=== PATIENT | female | born 1955 | race Caucasian/White ===

== ENCOUNTER 2018-08-19 00:58 | Emergency (ER) | payer BC ==
[2018-08-19 01:21] LABS: #Basophils 0.1 thou/uL (0.0-0.2); #Eosinphils 0.1 thou/uL (0.0-0.7); #Lymphocytes 2.3 thou/uL (1.20-3.40); #Monocytes 0.4 thou/uL (0.11-0.59); #Neutrophils 4.6 thou/uL (1.40-6.50); %Basophils 1.5 % (0.0-1.0); %Eosinophils 1.1 % (0.0-10.0); %Lymphocytes 30.2 % (21.0-51.0); %Monocytes 5.7 % (0.0-10.0); %Neutrophils 61.5 % (42.0-75.0); Hemoglobin 15.3 g/dL (12.0-16.0); Mean Corpuscular HGB CONC 34.9 g/dL (32.0-36.0); Mean Corpuscular Hemoglobin 31.2 pg (27.0-31.0); Mean Corpuscular Volume 89.5 fL (78.0-98.0); Mean Platelet Volume 8.2 fL (7.4-10.4); Platelet Count 256 thou/uL (130-400); RBC Distribution Width 11.5 % (11.5-14.5); Red Blood Cell (RBC) Count 4.91 mill/uL (4.20-5.40); White Blood Cell (WBC) Count 7.5 thou/uL (4.8-10.8)
[2018-08-19 01:34] LABS: ALT (SGPT) 23 U/L (8-55); AST (SGOT) 18 U/L (5-34); Albumin 4.2 g/dL (3.5-5.0); Alkaline Phosphatase 48 U/L (40-150); Anion Gap 12 mmol/L (10-20); BUN (Urea Nitrogen) 18 mg/dL (9.8-20.1); Bilirubin, Total 0.3 mg/dL (0.2-1.2); CK (CPK) 141 U/L (29-168); Calc. Creatinine Clearance 0 mL/min (70-130); Calcium 9.3 mg/dL (7.8-10.44); Carbon Dioxide 23 mmol/L (22-29); Chloride 101 mmol/L (98-107); Estimated GFR-MDRD 84; Globulin 2.5 g/dL (2.4-3.5); Glucose 129 mg/dL (70-105); Potassium 3.8 mmol/L (3.5-5.1); Protein, Total 6.7 g/dL (6.0-8.3); Sodium 132 mmol/L (136-145)
[2018-08-19] MEDS ORDERED: Lorazepam 2 MG/ML VIAL ONE (03:00)
--- NOTE | 2018-08-19 07:54 | RAD ---
FExam: Chest one view HISTORY:Dyspnea. Palpitations. Comparison: None FINDINGS: Cardiac silhouette: Normal Pulmonary vessels: Normal Costophrenic angles: Clear LUNGS: No masses or consolidation. Pneumothorax: None Osseous abnormalities: None IMPRESSION: No acute cardiopulmonary process.
== END 2018-08-19 04:03 | disposition home or self-care (01) ==
LOC: ERS 00:58
DX: J20.9 Acute bronchitis, unspecified (principal); E03.9 Hypothyroidism, unspecified; Z79.1 Long term (current) use of non-steroidal anti-inflammatories (NSAID); Z79.899 Other long term (current) drug therapy
CPT/HCPCS: 71045; 80053; 82550; 84443; 84484; 85025; 93005; 96361; 96374; J2060

== ENCOUNTER 2018-12-10 07:33 | Outpatient (CLI) | payer BC ==
--- NOTE | 2018-12-10 08:55 | CT ---
CT ABDOMEN PELVIS WITH ORAL AND IV CONTRAST: HISTORY: Abdominal pain, nausea and diarrhea FINDINGS: There are bilateral breast implants. The lung bases are unremarkable. Multiple cysts are seen in the liver the largest measuring 3 cm. A gallstone is present. The spleen, pancreas, adrenal glands and left kidney are normal. There is a 3 cm cyst in the right kidney. No free air, free fluid or lymphadenopathy seen in the abdomen or pelvis. The patient is post appende ctomy and hysterectomy. The small bowel loops are not abnormally dilated. There is colonic diverticulosis without evidence of diverticulitis. Vascular calcifications are present without eviden ce of aneurysmal dilatation of the abdominal aorta. There are degenerative changes and levoscoliosis of the spine. IMPRESSION: 1. No evidence of acute process. 2. Hepatic cysts 3. Cholelithiasis 4. Right renal cyst 5. Colonic diverticulosis
[2018-12-10] MEDS ORDERED: Iopamidol 370 76% 100 ML VIAL ONE (09:00)
== END 2018-12-10 07:34 | disposition home or self-care (01) ==
LOC: SCSCT 07:33
PROVIDERS: ATTEND Family Medicine
DX: R10.84 Generalized abdominal pain (principal); K76.89 Other specified diseases of liver; K80.20 Calculus of gallbladder without cholecystitis without obstruction; N28.1 Cyst of kidney, acquired; K57.30 Diverticulosis of large intestine without perforation or abscess without bleeding
CPT/HCPCS: 74177; 82565; Q9967

== ENCOUNTER 2020-09-24 14:30 | Outpatient (CLI) | payer BC | END 2020-09-24 14:31 | disposition home or self-care (01) | LOC: SCSRAD 14:30 | PROVIDERS: ATTEND Family Medicine | DX: M25.512 Pain in left shoulder (principal) ==